=== PATIENT | female | born 1960 | race African-American/Black ===

== ENCOUNTER 2024-10-03 06:07 | Emergency (ER) | payer MEDICAID ==
[~2024-10-03] VITALS: Ht 165.1 cm; Wt 70.0 kg
[2024-10-03 06:09] VITALS: TEMP 98; O2SAT 99
[2024-10-03 08:23] LABS: BASOPHILS % 0.8 % (0.0-2.0); DIFFERENTIAL COMMENT 0; EOSINOPHILS % 3.3 % (0.0-5.0); HEMATOCRIT. 42.6 % (36.0-48.0); HEMOGLOBIN. 14.1 g/dL (12.0-16.0); LYMPHOCYTES % 31.8 % (20.0-50.0); MEAN CORPUSCULAR HEMOGLOBIN 34.1 pg (28.0-32.0); MEAN CORPUSCULAR VOLUME 103.4 fL (81.0-99.0); MEAN PLATELET VOLUME 8.6 fl (7.4-10.4); MONOCYTES % 11.9 % (2.0-8.0); NEUTROPHILS % 52.2 % (40.0-76.0); PLATELET 302 x1000/uL (130-400); RED BLOOD CELL COUNT 4.12 mill/uL (4.2-5.4); RED CELL DISTRIBUTION WIDTH 13.4 % (11.6-14.6); WHITE BLOOD COUNT 6.4 x1000/uL (4.5-11.0)
[2024-10-03] MEDS: KETOROLAC 30MG/ML VIAL IM ONE (08:28)
[2024-10-03] MEDS: LIDOCAINE HCL 1% 20ML VIAL INFIL ONE (08:29)
[2024-10-03 08:32] VITALS: BP 152/101; PULSE 96; RESP 18; O2SAT 100
[2024-10-03 08:32] LABS: CHLORIDE 107 mEq/L (98-107); POTASSIUM 4.5 mEq/L (3.5-5.1); SODIUM 138 mEq/L (136-145)
[2024-10-03 08:33] LABS: CALCIUM 10.4 mg/dL (8.7-10.4); CARBON DIOXIDE 25 mEq/L (21-32)
[2024-10-03 08:38] LABS: CREATININE 1.3 mg/dL (0.6-1.0); GLUCOSE 93 mg/dL (70-105); UREA NITROGEN BLOOD 26 mg/dL (9-23)
[2024-10-03 08:40] LABS: ALANINE AMINOTRANSFERASE 13 IU/L (10-49); ALBUMIN 5.1 g/dL (3.2-4.8); ASPARTATE AMINOTRANSFERASE 21 IU/L (<34); BILIRUBIN TOTAL 0.8 mg/dL (0.1-1.0); PROTEIN TOTAL 8.3 g/dL (6.0-8.3)
[2024-10-03 10:09] LABS: CLARITY URINE CLOUDY (CLEAR); COLOR URINE YELLOW (YELLOW); GLUCOSE URINE NEGATIVE (NEGATIVE); KETONES URINE NEGATIVE (NEGATIVE); LEUKOCYTE ESTERASE URINE NEGATIVE (NEGATIVE); NITRITE URINE NEGATIVE (NEGATIVE); OCCULT BLOOD URINE NEGATIVE (NEGATIVE); PH URINE 5.5 (4.5-8.0); PROTEIN URINE 1+ (NEGATIVE); SPECIFIC GRAVITY URINE 1.033 (1.005-1.030)
[2024-10-03 10:33] LABS: SQUAMOUS EPITHELIAL CELL URINE 1+ /lpf (RARE/1+)
[2024-10-03 10:35] LABS: BACTERIA URINE TRACE; RBC URINE NONE SEEN /hpf (0-2); WBC URINE 0-2 /hpf (0-2)
[2024-10-03 10:36] LABS: CALCIUM OXALATE CRYSTALS URINE 4+ /lpf
[2024-10-03] MEDS ORDERED: NAPR-1486 MT (11:05)
[2024-10-03] MEDS ORDERED: LIDO700A30 TP (11:05)
[2024-10-03] MEDS ORDERED: CYCL5TAB3 MT (11:05)
== END 2024-10-03 12:23 | disposition home or self-care (01) ==
LOC: ER 06:07
DX: M54.50 Low back pain, unspecified (principal); I10 Essential (primary) hypertension
CPT/HCPCS: 80053; 81003; 85025; 36415; 96372; 99283; J1885; Z7610

== ENCOUNTER 2025-10-16 03:58 | Emergency (ER) | payer MEDICAID ==
[~2025-10-16] VITALS: Ht 165.1 cm; Wt 78.0 kg
[~2025-10-16 03:58] MED LIST: CYCL5TAB3 MT; LIDO700A30 TP; NAPR-1486 MT
[2025-10-16 04:00] VITALS: TEMP 98.1; O2SAT 100
[2025-10-16 04:44] VITALS: BP 162/89; PULSE 95; RESP 18
[2025-10-16] MEDS: KETOROLAC 15MG/ML VIAL IM ONE (04:44)
[2025-10-16] MEDS ORDERED: NAPR-1176 MT (05:24)
[2025-10-16] MEDS ORDERED: LIDO-53 TP (05:24)
[2025-10-16] MEDS: HYDROCODONE/ACETAMINOPHEN 5/325MG TABLET PO ONE (05:49)
== END 2025-10-16 06:26 | disposition home or self-care (01) ==
LOC: ER 03:58
DX: M25.562 Pain in left knee (principal); I10 Essential (primary) hypertension; Z79.1 Long term (current) use of non-steroidal anti-inflammatories (NSAID); Z79.899 Other long term (current) drug therapy; W22.09XA Striking against other stationary object, initial encounter; Y93.89 Activity, other specified; Y92.89 Other specified places as the place of occurrence of the external cause; Y99.8 Other external cause status
CPT/HCPCS: 99283; 29505; 73562; 96372; J1885